=== PATIENT | male | born 1960 | race Caucasian/White ===

== ENCOUNTER 2016-11-27 01:38 | Emergency (ER) | payer BC ==
[2016-11-27 01:39] VITALS: BMI 46.7
--- NOTE | 2016-11-27 02:15 | ED PDOC ---
Arrival/HPI - General Chief Complaint: Lower Extremity Problem/Injury Time Seen by Provider: 11/27/16 02:06 Historian: Patient - History of Present Illness Narrative History of Present Illness (Text): 11/27/16 02:17 Samson Plata is a 56 year old male, with a history of asthma, diabetes, and hypothyroidism, presents to the emergency department complaining of left buttock pain radiating down left leg for past week. Patient also notes of tingling sensation to left leg, but denies any numbness or weakness. He was evaluated for these symptoms at the clinic and reports that symptoms have not improved despite taking medications. Denies any fever, chills, headache, dizziness, nausea, chest pain, shortness of breath or any other complaints at this time. Time/Duration: 1 week Symptom Onset: Gradual Severity Level: Mild Activities at Onset: Light Past Medical History - Provider Review Nursing Documentation Reviewed: Yes - Infectious Disease Hx of Infectious Diseases: None - Tetanus Immunization Tetanus Immunization: Unknown - Cardiac Hx Cardiac Disorders: No Hx Angina: No Hx Atrial Fibrillation: No Hx Cardiac Arrhythmia: No Hx Circulatory Problems: No Hx Congestive Heart Failure: No Hx NM: No Hx Heart Murmur: No Hx Heart Transplant: No Hx Hypertension: No Hx Hypotension: No Hx Internal Defibrillator: No Hx Mitral Valve Prolapse: No Hx Pacemaker: No Hx Peripheral Edema: No Hx Peripheral Vascular Disease: No - Pulmonary Hx Asthma: Yes Hx Bronchitis: No Hx Chronic Obstructive Pulmonary Disease (COPD): No Hx Emphysema: No Hx Lung Cancer: No Hx Pneumonia: No Hx Pulmonary Edema: No Hx Pulmonary Embolism: No Hx Respiratory Aspiration: No Hx Respiratory Tract Infection: No Hx Sleep Apnea: No Hx Tuberculosis: No - Neurological Hx Neurological Disorder: No Hx Alzheimer's Disease: No HX Cerebrovascular Accident: No Hx Dementia: No Hx Dizziness: No Hx Headaches: No Hx Meningitis: No Hx Migraine: No Hx Multiple Sclerosis: No Hx Paralysis: No Hx Parkinson's Disease: No Hx Seizures: No Hx Syncope: No Hx Transient Ischemic Attacks (TIA): No Hx Vertigo: No - HEENT Hx HEENT Disorder: No Hx Blind: No Hx Cataracts: No Hx Deafness: No Hx Difficulty Chewing: No Hx Epistaxis: No Hx Glaucoma: No Hx Macular Degeneration: No - Renal Hx Renal Disorder: No Hx Dialysis: No Hx Kidney Stones: No Hx Neurogenic Bladder: No Hx Pyelonephritis: No Hx Renal Cancer: No Hx Renal Failure: No - Endocrine/Metabolic Hx Adrenal Cancer: No Hx Diabetes Insipidus: No Hx Diabetes Mellitus Type 1: No Hx Diabetes Mellitus Type 2: Yes Hx Hyperthyroidism: No Hx Hypothyroidism: Yes Hx Systemic Lupus Erythematosus: No - Hematological/Oncological Hx Blood Disorders: No Hx AIDS: No Hx Anemia: No Hx Blood Transfusions: No Hx Blood Transfusion Reaction: No Hx Bruising: No Hx Cancer: No Hx Chemotherapy: No Hx Cirrhosis: No Hx Gum Bleeding: No Hx Hemophilia: No Hx Hepatitis A: No Hx Hepatitis B: No Hx Hepatitis C: No Hx Leukemia: No Hx Lymphoma: No Hx Metastasis: No Hx Shingles: No Hx Sickle Cell Trait: No Hx Sickle Cell Disease: No Hx Unexplained Bleeding: No Hx von Willebrand's Disease: No - Integumentary Hx Dermatological Disorder: No Hx Basal Cell Carcinoma: No Hx Jimenez: No Hx Cellulitis: No Hx Eczema: No Hx Melanoma: No Hx Psoriasis: No Hx Squamous Cell Carcinoma: No - Musculoskeletal/Rheumatological Hx Musculoskeletal Disorders: No Hx Arthritis: No Hx Back Pain: No Hx Degenerative Joint Disease: No Hx Falls: No Hx Fractures: No Hx Gout: No Hx Herniated Disk: No Hx Myasthenia Gravis: No Hx Osteoarthritis: No Hx Osteomyelitis: No Hx Osteoporosis: No Hx Rhabdomyolysis: No Hx Rheumatoid Arthritis: No Hx Spinal Stenosis: No Hx Unsteady Gait: No - Gastrointestinal Hx Gastrointestinal Disorders: No - Genitourinary/Gynecological Hx Genitourinary Disorders: No - Psychiatric Hx Psychophysiologic Disorder: No Hx Depression: No Hx Emotional Abuse: No Hx Physical Abuse: No Hx Substance Use: No - Past Surgical History Past Surgical History: No Previous - Surgical History Other/Comment: left knee surgery - Anesthesia Hx Anesthesia: Yes Hx Anesthesia Reactions: No Hx Malignant Hyperthermia: No - Suicidal Assessment Feels Threatened In Home Enviroment: No Family/Social History - Physician Review Nursing Documentation Reviewed: Yes Family/Social History: No Known Family HX Smoking Status: Never Smoked Hx Alcohol Use: No Hx Substance Use: No Hx Substance Use Treatment: No Allergies/Home Meds Allergies/Adverse Reactions: Allergies astemizole [From Hismanal] Allergy (Verified 11/27/16 01:58) RASH doxycycline Allergy (Verified 11/27/16 01:58) RASH nadolol Allergy (Verified 11/27/16 01:58) RASH tetracycline Allergy (Verified 11/27/16 01:58) RASH Home Medications: Home Meds Medication Instructions Recorded Confirmed Levothyroxine Sodium [Levoxyl] 200 mcg PO DAILY 11/27/16 11/27/16 metFORMIN [glucOPHAGE] 200 mg PO BID 11/27/16 11/27/16 Review of Systems - Physician Review All systems were reviewed & negative as marked: Yes - Review of Systems Constitutional: Normal. absent: Fatigue, Fevers Respiratory: Normal. absent: SOB, Cough, Sputum Cardiovascular: Normal. absent: Chest Pain, Palpitations Genitourinary Male: Normal. absent: Dysuria Musculoskeletal: Other (left leg pain ) Psychiatric: Normal Physical Exam Vital Signs Reviewed: Yes Vital Signs Temp Pulse Resp BP Pulse Ox 11/27/16 01:59 98.1 F 85 18 147/94 H 98 Temperature: Afebrile Blood Pressure: Normal Pulse: Regular Respiratory Rate: Normal Appearance: Positive for: Non-Toxic, Other (morbidly obese) Pain Distress: None Mental Status: Positive for: Alert and Oriented X 3 - Systems Exam Head: Present: Atraumatic, Normocephalic Pupils: Present: PERRL Conjunctiva: Present: Normal Mouth: Present: Moist Mucous Membranes Respiratory/Chest: Present: Clear to Auscultation, Good Air Exchange. No: Respiratory Distress, Accessory Muscle Use Cardiovascular: Present: Regular Rate and Rhythm, Normal S1, S2. No: Murmurs Abdomen: Present: Normal Bowel Sounds. No: Tenderness, Distention, Peritoneal Signs Back: Present: Normal Inspection. No: CVA Tenderness, Midline Tenderness Upper Extremity: Present: Normal Inspection. No: Cyanosis, Edema Lower Extremity: Present: Normal Inspection. No: Edema Neurological: Present: GCS=15, CN II-XII Intact, Speech Normal, Motor Func Grossly Intact, Normal Sensory Function Skin: Present: Warm, Dry, Normal Color. No: Rashes Psychiatric: Present: Alert, Oriented x 3, Normal Insight, Normal Concentration Medical Decision Making ED Course and Treatment: 11/27/16 02:21 Impression: A 56 year old male who presents to the emergency department complaining of left leg pain. Plan: -- CT lumbar spine -- Toradol -- Reassess and disposition Progress Notes: 11/27/16 03:49 CT Lumbar spine reviewed: IMPRESSION: No acute findings. Degenerative disease as above. If clinically indicated, consider nonemergent followup MRI for further evaluation. On re-evaluation, patient feels better and is in no acute distress. I have discussed the results and plan with the patient, who expresses understanding. Patient in agreement with plan to be discharged home. Patient is stable for discharge. Patient was instructed to follow up with physician or return if symptoms worsen or new concerning symptoms arise. Re-evaluation Time: 03:46 Reassessment Condition: Re-examined, Improved - RAD Interpretation Narrative RAD Interpretations (Text): EXAM: CT Lumbar Spine Without Intravenous Contrast No relevant prior studies available. FINDINGS: Vertebrae: There is straightening of lordosis. No acute fracture. Discs/spinal canal/neural foramina: There is mild multilevel degenerative change. Broad-based disc bulge and ligamentum flavum hypertrophy at the L4-5 level results in mild central canal stenosis. Soft tissues: No acute findings. IMPRESSION: No acute findings. Degenerative disease as above. If clinically indicated, consider nonemergent followup MRI for further evaluation. Radiology Orders: 11/27/16 02:17 LUMBAR SPINE W/O CONTRAST [CT] Stat Document Reviewer: Radiologist - Medication Orders Current Medication Orders: Discontinued Medications Ketorolac Tromethamine (Toradol) 30 mg IM ONCE ONE Stop: 11/27/16 02:16 Last Admin: 11/27/16 02:28 Dose: 30 mg - Scribe Statement The provider has reviewed the documentation as recorded by the Leandro oJnes Provider Attestation: Provider Scribe Attestation: All medical record entries made by the Sheldonibgrady were at my direction and personally dictated by me. I have reviewed the chart and agree that the record accurately reflects my personal performance of the history, physical exam, medical decision making, and the department course for this patient. I have also personally directed, reviewed, and agree with the discharge instructions and disposition. Disposition/Present on Arrival - Present on Arrival Any Indicators Present on Arrival: No History of DVT/PE: No History of Uncontrolled Diabetes: No Urinary Catheter: No History of Decub. Ulcer: No History Surgical Site Infection Following: None - Disposition Have Diagnosis and Disposition been Completed?: Yes Diagnosis: Sciatica Disposition: HOME/ ROUTINE Disposition Time: 03:47 Patient Problems: Current Active Problems Problem Status Onset Sciatica Acute Condition: GOOD Discharge Instructions (ExitCare): Sciatica (ED) Prescriptions: Meloxicam [Mobic] 15 mg PO DAILY #14 tab Forms: [employer] [facility] (Urdu)
[2016-11-27 02:22] VITALS: BP 147/94; PULSE 85; RESP 18; TEMP 98.1; O2SAT 98
--- NOTE | 2016-11-27 10:26 | CT ---
PROCEDURE: CT Lumbar Spine without contrast HISTORY: back pain COMPARISON: None. TECHNIQUE: Axial computed tomography images were obtained of the lumbar spine without the use of intravenous contrast. Coronal and sagittal reformatted images were created and reviewed. Radiation dose: Total exam DLP = 1421 mGy-cm. This CT exam was performed using one or more of the following dose reduction techniques: Automated exposure control, adjustment of the mA and/or kV according to patient size, and/or use of iterative reconstruction technique. FINDINGS: VERTEBRAE: Unremarkable. No fracture. Normal alignment. DISCS/SPINAL CANAL/NEURAL FORAMINA: L1-2: Unremarkable. L2-3: Unremarkable. L3-4: Mild disc bulge L4-5: Disc bulge an calcified central disc protrusion. There is a mild degree of spinal stenosis. L5-S1: Right-sided osteophyte with foraminal stenosis PARASPINAL SOFT TISSUES: Unremarkable. OTHER FINDINGS: The report concurs with the preliminary [facility] report IMPRESSION: Disc degeneration with calcified central protrusion at L4-5 producing mild central stenosis. Right-sided osteophyte producing foraminal stenosis at L5-S1
== END 2016-11-27 03:54 | disposition home or self-care (01) ==
LOC: ED 01:38
DX: M54.30 Sciatica, unspecified side (principal)
CPT/HCPCS: 72131; 96372; 99284; J1885

== ENCOUNTER 2017-04-20 00:38 | Emergency (ER) | payer BC ==
[2017-04-20 00:38] VITALS: BMI 46.7
[2017-04-20 00:53] VITALS: BP 163/94; PULSE 98; RESP 20; TEMP 98; O2SAT 99
--- NOTE | 2017-04-20 00:54 | ED PDOC ---
Arrival/HPI - General Chief Complaint: Back Pain Time Seen by Provider: 04/20/17 00:53 Historian: Patient - History of Present Illness Narrative History of Present Illness (Text): 04/20/17 00:54 Samson Plata is a 56 year old male, with a history of asthma, diabetes, and hypothyroidism, presents to the emergency department complaining of left lower back pain x 1 day. Patient denies trauma, flank pain, illegal drug use, urinary symptoms, weakness, paresthesias, GI/ incontinence, saddle anesthesias , urinary retention, or abnormal gait. Time/Duration: Other (1 day) Quality: Aching Context: Home Past Medical History - Provider Review Nursing Documentation Reviewed: Yes - Infectious Disease Hx of Infectious Diseases: None - Tetanus Immunization Tetanus Immunization: Unknown - Cardiac Hx Cardiac Disorders: Yes Hx Hypertension: Yes - Pulmonary Hx Respiratory Disorders: Yes Hx Asthma: Yes - Neurological Hx Neurological Disorder: No - HEENT Hx HEENT Disorder: No - Renal Hx Renal Disorder: No - Endocrine/Metabolic Hx Endocrine Disorders: Yes Hx Diabetes Mellitus Type 2: Yes Hx Hypothyroidism: Yes - Hematological/Oncological Hx Blood Disorders: No - Integumentary Hx Dermatological Disorder: No - Musculoskeletal/Rheumatological Hx Musculoskeletal Disorders: Yes Hx Back Pain: Yes - Gastrointestinal Hx Gastrointestinal Disorders: No - Genitourinary/Gynecological Hx Genitourinary Disorders: No - Psychiatric Hx Psychophysiologic Disorder: No Hx Substance Use: No - Past Surgical History Past Surgical History: No Previous - Surgical History Other/Comment: left knee surgery - Anesthesia Hx Anesthesia: Yes Hx Anesthesia Reactions: No Hx Malignant Hyperthermia: No - Suicidal Assessment Feels Threatened In Home Enviroment: No Family/Social History - Physician Review Nursing Documentation Reviewed: Yes Family/Social History: Other (noncontributory) Smoking Status: Never Smoked Hx Alcohol Use: No Hx Substance Use: No Hx Substance Use Treatment: No Allergies/Home Meds Allergies/Adverse Reactions: Allergies astemizole [From Hismanal] Allergy (Verified 04/20/17 00:49) RASH doxycycline Allergy (Verified 04/20/17 00:49) RASH nadolol Allergy (Verified 04/20/17 00:49) RASH tetracycline Allergy (Verified 04/20/17 00:49) RASH Home Medications: Home Meds Medication Instructions Recorded Confirmed Atorvastatin [Lipitor] 10 mg PO DAILY 04/20/17 04/20/17 Levothyroxine [Synthroid] 200 mcg PO DAILY 04/20/17 04/20/17 Losartan [Cozaar] 25 mg PO DAILY 04/20/17 04/20/17 Sitagliptin Phos/Metformin HCl 1 each PO BID 04/20/17 04/20/17 [Janumet 50-1,000 mg Tablet] Review of Systems - Review of Systems Constitutional: Normal. absent: Fatigue, Weight Change, Fevers Eyes: Normal ENT: Normal Respiratory: Normal. absent: SOB, Cough Cardiovascular: Normal Gastrointestinal: Normal. absent: Abdominal Pain, Nausea, Vomiting Genitourinary Male: Normal. absent: Dysuria, Frequency Musculoskeletal: Back Pain. absent: Neck Pain Skin: Normal Neurological: Normal. absent: Headache, Dizziness, Focal Weakness, Gait Changes , Speech Changes, Facial Droop, Disequilibrium, Seizure Endocrine: Normal Hemo/Lymphatic: Normal Psychiatric: Normal Physical Exam Vital Signs Temp Pulse Resp BP Pulse Ox 04/20/17 00:50 98 F 98 H 20 163/94 H 99 Temperature: Afebrile Blood Pressure: Normal Pulse: Regular Respiratory Rate: Normal Appearance: Positive for: Well-Appearing, Non-Toxic, Comfortable Pain Distress: None Mental Status: Positive for: Alert and Oriented X 3 - Systems Exam Head: Present: Atraumatic, Normocephalic Mouth: Present: Moist Mucous Membranes Abdomen: No: Tenderness Back: Present: Normal Inspection, Paraspinal Tenderness (mild left paravertebral tenderness. no vertebal point tenderness. No vertebral step off ). No: CVA Tenderness, Midline Tenderness, Pain with Leg Raise Upper Extremity: Present: Normal Inspection, Normal ROM Lower Extremity: Present: Normal Inspection, Normal ROM Neurological: Present: GCS=15, CN II-XII Intact, Speech Normal, Motor Func Grossly Intact, Normal Sensory Function, Normal Cerebellar Funct, Gait Normal, Memory Normal, Other (No neuro focal deficits) Skin: Present: Warm, Dry, Normal Color. No: Rashes Psychiatric: Present: Alert, Oriented x 3, Normal Insight, Normal Concentration Medical Decision Making ED Course and Treatment: 04/20/17 01:50 Re-evaluation. Patient feels better. Discussed results and plan with patient who expresses understanding. All questions answered and there is agreement with the plan to discharge home with instructions. Patient stable for discharge. Return if symptoms persist or worsen. Patient was recommend d to f/u pmd in 2-3 days. He understands not to drive or operate machinery while taking Valium. Patient stated he will be taking [employer] upon discharge of this ED visit tonight. Patient will return to ED if symptom worsen. Re-evaluation Time: 01:50 Reassessment Condition: Re-examined, Improved - Medication Orders Current Medication Orders: Discontinued Medications Diazepam (Valium) 5 mg PO STAT STA PRN Reason: Protocol Stop: 04/20/17 01:20 Last Admin: 04/20/17 01:36 Dose: 5 mg Ketorolac Tromethamine (Toradol) 30 mg IM STAT STA Stop: 04/20/17 01:10 Last Admin: 04/20/17 01:36 Dose: 30 mg MAR Pain Assessment Document 04/20/17 01:36 CNR (Rec: 04/20/17 01:36 CNR [id number]) Pain Reassessment Is this a pain reassessment? Yes IM Administration Charges Document 04/20/17 01:36 CNR (Rec: 04/20/17 01:36 CNR [id number]) Injection Site MAR Injection Site Right Deltoid Charges for Administration # of IM Administrations 1 Disposition/Present on Arrival - Present on Arrival Any Indicators Present on Arrival: No History of DVT/PE: No History of Uncontrolled Diabetes: No Urinary Catheter: No History of Decub. Ulcer: No History Surgical Site Infection Following: None - Disposition Have Diagnosis and Disposition been Completed?: Yes Diagnosis: Back pain Disposition: HOME/ ROUTINE Disposition Time: 01:51 Patient Plan: Discharge Condition: IMPROVED Discharge Instructions (ExitCare): Back Pain (ED) Additional Instructions: Call private doctor for follow up visit in 1-2 days. take medication as instructed. Return to emergency if pain worsen, rash , fever, shortness of breath or abnormal walk. Do not drive or operate machinery if you take Valium for at least 10 hours Prescriptions: diaZEpam [Valium] 5 mg PO DAILY #5 tab Ibuprofen [Motrin] 600 mg PO Q8 PRN #15 tab PRN Reason: Pain, Severe (8-10) Forms: [employer] (Serbian)
== END 2017-04-20 02:04 | disposition home or self-care (01) ==
LOC: ED 00:38
DX: M54.5 Low back pain (principal); E11.9 Type 2 diabetes mellitus without complications; I10 Essential (primary) hypertension; E03.9 Hypothyroidism, unspecified
CPT/HCPCS: 96372; 99282; J1885

== ENCOUNTER 2017-04-21 14:22 | Emergency (ER) | payer BC ==
[2017-04-21 14:23] VITALS: BMI 46.7
[2017-04-21 14:30] VITALS: TEMP 97.9
--- NOTE | 2017-04-21 14:31 | ED PDOC ---
Arrival/HPI - General Chief Complaint: Back Pain Time Seen by Provider: 04/21/17 14:30 Historian: Patient - History of Present Illness Narrative History of Present Illness (Text): 04/21/17 14:31 56 y/o male, pmh including htn/hyperlipidemia/dm, allergic to tetracycline and beta blockers, c/o lt. gluteal pain radiating to the lt. lower extremity x 3 days with no fall or trauma. Pt. stated that he has central lumbar disc protrusion on the L4L5 and rt. sided foraminal stenosis at L5S1, started to have pain 3 days ago, no fever or chills, no urinary or bowel incontinence/ retention, no numbness or tingling, no palpitation, no dizziness, no rash, no other medical or psychological complaints. Past Medical History - Provider Review Nursing Documentation Reviewed: Yes - Infectious Disease Hx of Infectious Diseases: None - Tetanus Immunization Tetanus Immunization: Unknown - Cardiac Hx Cardiac Disorders: Yes Hx Hypertension: Yes - Pulmonary Hx Respiratory Disorders: Yes Hx Asthma: Yes - Neurological Hx Neurological Disorder: No - HEENT Hx HEENT Disorder: No - Renal Hx Renal Disorder: No - Endocrine/Metabolic Hx Endocrine Disorders: Yes Hx Diabetes Mellitus Type 2: Yes Hx Hypothyroidism: Yes - Hematological/Oncological Hx Blood Disorders: No - Integumentary Hx Dermatological Disorder: No - Musculoskeletal/Rheumatological Hx Musculoskeletal Disorders: Yes Hx Back Pain: Yes - Gastrointestinal Hx Gastrointestinal Disorders: No - Genitourinary/Gynecological Hx Genitourinary Disorders: No - Psychiatric Hx Psychophysiologic Disorder: No Hx Substance Use: No - Past Surgical History Past Surgical History: No Previous - Surgical History Other/Comment: left knee surgery - Anesthesia Hx Anesthesia: Yes Hx Anesthesia Reactions: No Hx Malignant Hyperthermia: No - Suicidal Assessment Feels Threatened In Home Enviroment: No Family/Social History - Physician Review Nursing Documentation Reviewed: Yes Family/Social History: Unknown Family HX Smoking Status: Never Smoked Hx Alcohol Use: No Hx Substance Use: No Hx Substance Use Treatment: No Allergies/Home Meds Allergies/Adverse Reactions: Allergies astemizole [From Hismanal] Allergy (Verified 04/20/17 00:49) RASH doxycycline Allergy (Verified 04/20/17 00:49) RASH nadolol Allergy (Verified 04/20/17 00:49) RASH tetracycline Allergy (Verified 04/20/17 00:49) RASH Home Medications: Home Meds Medication Instructions Recorded Confirmed Atorvastatin [Lipitor] 10 mg PO DAILY 04/20/17 04/21/17 Levothyroxine [Synthroid] 200 mcg PO DAILY 04/20/17 04/21/17 Losartan [Cozaar] 25 mg PO DAILY 04/20/17 04/21/17 Sitagliptin Phos/Metformin HCl 1 each PO BID 04/20/17 04/21/17 [Janumet 50-1,000 mg Tablet] Review of Systems - Review of Systems Constitutional: absent: Fatigue, Fevers Eyes: absent: Vision Changes ENT: absent: Hearing Changes Respiratory: absent: SOB, Cough Cardiovascular: absent: Chest Pain Gastrointestinal: absent: Abdominal Pain, Nausea, Vomiting Musculoskeletal: Myalgias. absent: Arthralgias, Back Pain, Neck Pain, Joint Swelling Skin: absent: Rash, Pruritis Neurological: absent: Headache, Dizziness Psychiatric: absent: Anxiety, Depression, Suicidal Ideation Physical Exam Vital Signs Reviewed: Yes Vital Signs Temp Pulse Resp BP Pulse Ox 04/21/17 16:15 88 18 152/97 H 98 04/21/17 14:31 183/97 H 04/21/17 14:29 97.9 F 103 H 20 178/119 H 95 Temperature: Afebrile Blood Pressure: Normal Pulse: Regular Respiratory Rate: Normal Appearance: Positive for: Well-Appearing, Non-Toxic Pain Distress: Severe Mental Status: Positive for: Alert and Oriented X 3 - Systems Exam Head: Present: Atraumatic, Normocephalic Pupils: Present: PERRL Extroacular Muscles: Present: EOMI Conjunctiva: Present: Normal Mouth: Present: Moist Mucous Membranes Neck: Present: Normal Range of Motion Respiratory/Chest: Present: Clear to Auscultation, Good Air Exchange. No: Respiratory Distress, Accessory Muscle Use Cardiovascular: Present: Regular Rate and Rhythm, Normal S1, S2. No: Murmurs Abdomen: Present: Normal Bowel Sounds. No: Tenderness, Distention, Peritoneal Signs Back: Present: Normal Inspection, Other (Thoracic to LS spine: no midline tenderness or step off, no paraspinal tenderness, FROM without limitation, sensation intact, motor 5/5, unable to perform SLR test due to the pain. ). No : CVA Tenderness, Midline Tenderness, Pain with Leg Raise, Decubitus Ulcer Upper Extremity: Present: Normal Inspection. No: Cyanosis, Edema Lower Extremity: Present: Normal Inspection, NORMAL PULSES, Normal ROM, Neurovascularly Intact, Capillary Refill < 2 s. No: Edema, Tenderness, Swelling , Deformity Neurological: Present: GCS=15, CN II-XII Intact, Speech Normal, Motor Func Grossly Intact, Gait Normal, Memory Normal Skin: Present: Warm, Dry, Normal Color. No: Rashes Psychiatric: Present: Alert, Oriented x 3, Normal Insight, Normal Concentration Medical Decision Making ED Course and Treatment: 04/21/17 14:54 -LLE venuous doppler -IVF/morphine/toradol/decadron 04/21/17 15:37 -LLE Venuous Doppler: as per preliminary report, no acute DVT -Pain improved with BP improved, pain has not completely resolved, dilaudid 1mg IV ordered. -I checked the [facility] report, no visible narcotic prescribe for the past 12 months base on today's report. 04/21/17 17:27 -Pt. feels much better after the IV medications, walking with normal gait and posture, -Discharge home with naproxen, flexeril, lidoderm patch, percocet for severe pain, cane, bed rest, follow up with your own pmd and neurosurgery/pain management within 2 days, return to the ER for any new or worsening signs or symptoms. - RAD Interpretation Radiology Orders: 04/21/17 14:45 DUPLEX LOWER EXTRM VEIN LEFT [US] Stat -LLE Venuous Doppler: as per preliminary report, no acute DVT Land Manager: Radiologist - Medication Orders Current Medication Orders: Discontinued Medications Dexamethasone (Decadron Inj) 8 mg IM STAT STA Stop: 04/21/17 14:47 Last Admin: 04/21/17 15:04 Dose: 8 mg IM Administration Charges Document 04/21/17 15:04 OCS (Rec: 04/21/17 15:04 OCS [id number]) Injection Site MAR Injection Site Left Deltoid Charges for Administration # of IM Administrations 1 Hydromorphone HCl (Dilaudid) 1 mg IVP STAT STA Stop: 04/21/17 16:22 Last Admin: 04/21/17 16:41 Dose: 1 mg MAR Pain Assessment Document 04/21/17 16:41 OCS (Rec: 04/21/17 16:42 OCS [id number]) Pain Reassessment Is this a pain reassessment? Yes Sleep Is patient sleeping during reassessment? No Presence of Pain Presence of Pain Yes Pain Scale Used Pain Scale Used Numeric Location Left, Right or Bilateral Bilateral Upper or Lower Lower Pain Location Body Site Back Description Description Constant Intensity of Pain at present 10 Pain Behavior Moaning Irritability Facial Grimacing Aggravating Factors ADL's IVP Administration Document 04/21/17 16:41 OCS (Rec: 04/21/17 16:42 OCS [id number]) Charges for Administration # of IVP Administrations 1 Ketorolac Tromethamine (Toradol) 30 mg IVP STAT STA Stop: 04/21/17 14:46 Last Admin: 04/21/17 15:04 Dose: 30 mg MAR Pain Assessment Document 04/21/17 15:04 OCS (Rec: 04/21/17 15:04 [id number] Pain Reassessment Is this a pain reassessment? Yes Sleep Is patient sleeping during reassessment? No Presence of Pain Presence of Pain Yes Pain Scale Used Pain Scale Used Numeric Location Left, Right or Bilateral Bilateral Pain Location Body Site Back Description Description Constant Intensity of Pain at present 10 Pain Behavior Moaning Irritability Aggravating Factors ADL's IVP Administration Document 04/21/17 15:04 OCS (Rec: 04/21/17 15:04 [id number]) Charges for Administration # of IVP Administrations 1 Lidocaine (Lidoderm) 1 ea TD STAT STA Stop: 04/21/17 14:47 Last Admin: 04/21/17 15:04 Dose: 1 ea MAR Transdermal Patch Site Document 04/21/17 15:04 OCS (Rec: 04/21/17 15:04 [id number]) Transdermal Patch Site Transdermal Patch Site Left Buttock Morphine Sulfate (Morphine) 4 mg IVP STAT STA Stop: 04/21/17 14:46 Last Admin: 04/21/17 15:05 Dose: 4 mg MAR Pain Assessment Document 04/21/17 15:05 OCS (Rec: 04/21/17 15:06 [id number]) Pain Reassessment Is this a pain reassessment? Yes Sleep Is patient sleeping during reassessment? No Presence of Pain Presence of Pain Yes Pain Scale Used Pain Scale Used Numeric Location Left, Right or Bilateral Bilateral Upper or Lower Lower Pain Location Body Site Back Description Description Constant Intensity of Pain at present 10 Pain Behavior Moaning Irritability Aggravating Factors ADL's IVP Administration Document 04/21/17 15:05 OCS (Rec: 04/21/17 15:06 OCS [id number]) Charges for Administration # of IVP Administrations 1 - PA / VALET SERVICE ATTENDANT / Resident Statement MD/DO has reviewed & agrees with the documentation as recorded. Disposition/Present on Arrival - Present on Arrival Any Indicators Present on Arrival: No History of DVT/PE: No History of Uncontrolled Diabetes: No Urinary Catheter: No History of Decub. Ulcer: No History Surgical Site Infection Following: None - Disposition Have Diagnosis and Disposition been Completed?: Yes Diagnosis: Lumbar radiculopathy, Lumbar disc herniation Disposition: HOME/ ROUTINE Disposition Time: 16:30 Patient Plan: Discharge Patient Problems: Current Active Problems Problem Status Onset Lumbar radiculopathy Acute Lumbar disc herniation Acute Condition: IMPROVED Additional Instructions: -Discharge home with naproxen, flexeril, lidoderm patch, percocet for severe pain, cane, bed rest, follow up with your own pmd and neurosurgery/pain management within 2 days, return to the ER for any new or worsening signs or symptoms. Prescriptions: Cyclobenzaprine [Cyclobenzaprine HCl] 10 mg PO TID PRN #21 tab PRN Reason: Other Lidocaine 5% [Lidoderm] 1 patch TOP DAILY PRN #14 patch PRN Reason: Other Naproxen 500 mg PO BID PRN #28 tab PRN Reason: Other oxyCODONE/Acetaminophen [Percocet 5/325 mg Tab] 1 tab PO QID PRN #12 tab PRN Reason: Other Referrals: Sofia Mcintosh, [Primary Care Provider] - Follow up with primary Benny Lee MD [Staff Provider] - Follow up with primary [facility] [place]] - Follow up with primary Yuliya Main MD [Staff Provider] - Follow up with primary Forms: WORK NOTE
[2017-04-21] MEDS ORDERED: Morphine 4 mg/ml ISec IVP STA (14:45)
[2017-04-21] MEDS ORDERED: Lidocaine 5% Patch TD STA (14:46)
[2017-04-21 16:15] VITALS: BP 152/97; PULSE 88; RESP 18; O2SAT 98
[2017-04-21] MEDS ORDERED: HYDROmorphone 1 mg/ml ISec IVP STA (16:21)
--- NOTE | 2017-04-22 13:10 | US ---
PROCEDURE: Left lower extremity venous US HISTORY: Leg pain and swelling. Evaluate for DVT. PHYSICIAN(S): Wilder Masters MD. TECHNIQUE: Duplex sonography and color-flow Doppler with graded compression were used to evaluate the deep venous system of the left lower extremity. FINDINGS: The visualized deep venous system of the left lower extremity is sonographically normal and compressible. Normal wave forms and augmentation are seen. There is no sonographic evidence for deep venous thrombosis in the visualized segments of the left lower extremity. IMPRESSION: 1. No sonographic evidence for deep venous thrombosis in the visualized segments of the left lower extremity.
== END 2017-04-21 17:23 | disposition home or self-care (01) ==
LOC: ED 14:22
DX: M51.16 Intervertebral disc disorders with radiculopathy, lumbar region (principal); M51.26 Other intervertebral disc displacement, lumbar region; I10 Essential (primary) hypertension; E78.5 Hyperlipidemia, unspecified; E11.9 Type 2 diabetes mellitus without complications; E03.9 Hypothyroidism, unspecified
CPT/HCPCS: 93971; 96372; 96374; 96375; 99283; J1100; J1170; J1885; J2270

== ENCOUNTER 2017-06-29 23:28 | Emergency (ER) | payer BC ==
[2017-06-29 23:32] VITALS: BMI 50.2
[2017-06-29 23:37] VITALS: BP 173/90; PULSE 95; RESP 18; TEMP 98.9; O2SAT 98
--- NOTE | 2017-06-30 00:43 | ED PDOC ---
Arrival/HPI - General Chief Complaint: Back Pain Historian: Patient - History of Present Illness Narrative History of Present Illness (Text): 06/30/17 00:39 56M morbidly obese pt pmh, significant for hypthryoidism, NIDDM, chronic back pain presents to [facility] [place] Emergency department w/ sharp left sided back pain that radiates down the back of the leg to the foot that started yesterday. Patient was sitting and driving when the pain started. Alleviating factors include rest and keeping leg straight. Worse w/ sitting. Denies urinary/bowel incontinence, numbness/paralysis in lower extremities. 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 denies tobacco, etoh, recreational drug use Time/Duration: < week Symptom Course: Improving Quality: Aching, Pressure, Stabbing Severity Level: 7 Activities at Onset: Rest Context: Sitting Past Medical History - Provider Review Nursing Documentation Reviewed: Yes - Travel History Have you recently traveled outside [place] w/in the past 3 mons?: No - Infectious Disease Hx of Infectious Diseases: None - Tetanus Immunization Tetanus Immunization: Unknown - Cardiac Hx Cardiac Disorders: Yes - Pulmonary Hx Respiratory Disorders: Yes Hx Asthma: Yes - Neurological Hx Neurological Disorder: No - HEENT Hx HEENT Disorder: No - Renal Hx Renal Disorder: No - Endocrine/Metabolic Hx Endocrine Disorders: Yes Hx Diabetes Mellitus Type 2: Yes Hx Hypothyroidism: Yes - Hematological/Oncological Hx Blood Disorders: No - Integumentary Hx Dermatological Disorder: No - Musculoskeletal/Rheumatological Hx Musculoskeletal Disorders: Yes Hx Back Pain: Yes - Gastrointestinal Hx Gastrointestinal Disorders: No - Genitourinary/Gynecological Hx Genitourinary Disorders: No - Psychiatric Hx Psychophysiologic Disorder: No Hx Substance Use: No - Past Surgical History Past Surgical History: No Previous - Surgical History Other/Comment: left knee surgery - Anesthesia Hx Anesthesia: Yes Hx Anesthesia Reactions: No Hx Malignant Hyperthermia: No - Suicidal Assessment Feels Threatened In Home Enviroment: No Family/Social History - Physician Review Nursing Documentation Reviewed: Yes Family/Social History: Other (PVD) Smoking Status: Never Smoked Hx Alcohol Use: No Hx Substance Use: No Hx Substance Use Treatment: No Allergies/Home Meds Allergies/Adverse Reactions: Allergies astemizole [From Hismanal] Allergy (Verified 06/30/17 01:05) RASH doxycycline Allergy (Verified 06/30/17 01:05) RASH nadolol Allergy (Verified 06/30/17 01:05) RASH tetracycline Allergy (Unverified 06/30/17 01:05) RASH Home Medications: Home Meds Medication Instructions Recorded Confirmed Levothyroxine [Synthroid] 200 mcg PO DAILY 04/20/17 06/29/17 Sitagliptin Phos/Metformin HCl 1 tab PO DAILY 06/29/17 [Janumet 50-500 mg Tablet] Review of Systems - Physician Review All systems were reviewed & negative as marked: Yes - Review of Systems Constitutional: Normal Eyes: Normal ENT: Normal Respiratory: Normal Cardiovascular: Normal Gastrointestinal: Normal Genitourinary Male: Normal Musculoskeletal: Normal Skin: Other (RLE hyperpigmentation) Endocrine: Polyuria Psychiatric: Normal Physical Exam Vital Signs Reviewed: Yes Vital Signs Temp Pulse Resp BP Pulse Ox 06/29/17 23:32 98.9 F 95 H 18 173/90 H 98 Temperature: Afebrile Blood Pressure: Hypertensive Pulse: Regular Respiratory Rate: Normal Appearance: Positive for: Well-Appearing, Non-Toxic, Comfortable Pain Distress: Moderate Mental Status: Positive for: Alert and Oriented X 3 - Systems Exam Head: Present: Atraumatic Pupils: Present: PERRL Extroacular Muscles: Present: EOMI Conjunctiva: Present: Normal Mouth: Present: Moist Mucous Membranes Neck: Present: Normal Range of Motion Respiratory/Chest: Present: Clear to Auscultation, Good Air Exchange. No: Respiratory Distress, Accessory Muscle Use, Wheezes, Rhonchi Cardiovascular: Present: Regular Rate and Rhythm, Normal S1, S2. No: Murmurs, Tachycardic, Bradycardic Abdomen: Present: Other (soft). No: Tenderness, Distention, Peritoneal Signs Upper Extremity: Present: Normal Inspection Lower Extremity: Present: Other (b/l warm, Left side +2 pulses). No: Socorro's Sign, Tenderness Neurological: Present: GCS=15, CN II-XII Intact, Speech Normal Skin: Present: Warm Psychiatric: Present: Alert, Oriented x 3 Medical Decision Making ED Course and Treatment: 06/30/17 00:46 Pain control w/ IM toradol muscle relaxer flexiril LE taken through full test of passive ROM 06/30/17 00:55 you were treated in the ED today for history of lower back pain with flare-up today and left sided sciatica type pain but otherwise without any nausea/ vomiting/headache/dizziness/difficulty breathing/chest pain/abdomen pain/ numbness/tingling/loss of limb or bowel or bladder function/pain with urination. You were otherwise breathing easily, pink moist lips, talking easily , good strength/sensation, alert/oriented, walking easily, clear lungs, no abdomen tenderness, no fever temp 98.5, stable heart rate 95, stable breathing rate 18, excellent oxygen level 98% room air, elevated blood pressure 173/90 which we recommend repeat in 2-3 days primary care office to determine further treatment, flexeril, motrin, observation done in the ED with improvement, had a long discussion regarding your CT lumbar with disc disease in 2017, you didn' t want further imaging today and cautioned for missed diagnosis but you preferred treatment and thus counselled to rest/heating pads and thus discharged home with family. 1. Recommend naproxen as directed for mild pain. 2. Recommend flexeril as directed for breakthrough pain and don't use when working/driving/drinking alcohol. 3. Recommend follow-up primary care 2-3 days to review symptoms, referral to spine clinic to eval and consider MRI of spine. 3. If any worsening pain, fever, chills, nausea, vomiting, difficulty breathing , numbness, loss of limb function, pain with urination or any medical condition then return to the ED. 06/30/17 00:56 06/30/17 00:57 Reassessment Condition: Improved - Medication Orders Current Medication Orders: Discontinued Medications Cyclobenzaprine HCl (Flexeril) 10 mg PO STAT STA Stop: 06/30/17 00:22 Last Admin: 06/30/17 00:45 Dose: 10 mg Ketorolac Tromethamine (Toradol) 15 mg IM STAT STA Stop: 06/30/17 00:22 Last Admin: 06/30/17 00:49 Dose: 15 mg MAR Pain Assessment Document 06/30/17 00:49 SS (Rec: 06/30/17 00:49 [id number] Pain Reassessment Is this a pain reassessment? No Presence of Pain Presence of Pain Yes IM Administration Charges Document 06/30/17 00:49 SS (Rec: 06/30/17 00:49 [id number][facility] Charges for Administration # of IM Administrations 1 - PA / DOG POUND ATTENDANT / Resident Statement MD/DO has reviewed & agrees with the documentation as recorded. Disposition/Present on Arrival - Present on Arrival Any Indicators Present on Arrival: No History of DVT/PE: No History of Uncontrolled Diabetes: No Urinary Catheter: No History of Decub. Ulcer: No History Surgical Site Infection Following: None - Disposition Have Diagnosis and Disposition been Completed?: Yes Diagnosis: Low back pain, Compression of left sciatic nerve, Acute back pain with sciatica Disposition: HOME/ ROUTINE Disposition Time: 00:47 Patient Plan: Discharge Patient Problems: Current Active Problems Problem Status Onset Acute back pain with sciatica Acute Compression of left sciatic nerve Acute Low back pain Acute Condition: GOOD Discharge Instructions (ExitCare): Low Back Pain (DC) Additional Instructions: Previous CT scan reviewed from 2017: Disc degeneration w/ calcified central protrusion at L4-5 producing mild central stenosis; reight sided osteophyte producing foraminal stenosis at L5-S1 Recommend putting wallet in front pockets. Follow up w/ PMD for f/u MRI. you were treated in the ED today for history of lower back pain with flare-up today and left sided sciatica type pain but otherwise without any nausea/ vomiting/headache/dizziness/difficulty breathing/chest pain/abdomen pain/ numbness/tingling/loss of limb or bowel or bladder function/pain with urination. You were otherwise breathing easily, pink moist lips, talking easily , good strength/sensation, alert/oriented, walking easily, clear lungs, no abdomen tenderness, no fever temp 98.5, stable heart rate 95, stable breathing rate 18, excellent oxygen level 98% room air, elevated blood pressure 173/90 which we recommend repeat in 2-3 days primary care office to determine further treatment, flexeril, motrin, observation done in the ED with improvement, had a long discussion regarding your CT lumbar with disc disease in 2017, you didn' t want further imaging today and cautioned for missed diagnosis but you preferred treatment and thus counselled to rest/heating pads and thus discharged home with family. 1. Recommend naproxen as directed for mild pain. 2. Recommend flexeril as directed for breakthrough pain and don't use when working/driving/drinking alcohol. 3. Recommend follow-up primary care 2-3 days to review symptoms, referral to spine clinic to eval and consider MRI of spine. 3. If any worsening pain, fever, chills, nausea, vomiting, difficulty breathing , numbness, loss of limb function, pain with urination or any medical condition then return to the ED. Forms: [employer] ([employer])
== END 2017-06-30 01:24 | disposition home or self-care (01) ==
LOC: ED 23:28
DX: M54.40 Lumbago with sciatica, unspecified side (principal); G57.02 Lesion of sciatic nerve, left lower limb; E11.9 Type 2 diabetes mellitus without complications; E03.9 Hypothyroidism, unspecified; E66.01 Morbid (severe) obesity due to excess calories
CPT/HCPCS: 96372; 99282; J1885

== ENCOUNTER 2017-07-11 20:12 | Emergency (ER) | payer BC ==
[2017-07-11 20:19] VITALS: BMI 48.8
--- NOTE | 2017-07-11 21:13 | ED PDOC ---
Arrival/HPI - General Chief Complaint: Back Pain Time Seen by Provider: 07/11/17 20:58 Historian: Patient - History of Present Illness Narrative History of Present Illness (Text): 07/11/17 21:06 56M morbidly obese pt pmh, significant for hypthryoidism, NIDDM, chronic back pain presents to [facility] Emergency department w/ sharp left sided back pain that radiates down the left buttocks since yesterday. Denies trauma, skin rash, weakness, paresthesias, GI/ incontinence, saddle anesthesia, urinary retention , dizziness, or abnormal gait. Time/Duration: Other (see hpi) Quality: Aching Context: Home Past Medical History - Provider Review Nursing Documentation Reviewed: Yes - Infectious Disease Hx of Infectious Diseases: None - Tetanus Immunization Tetanus Immunization: Unknown - Cardiac Hx Cardiac Disorders: No - Pulmonary Hx Respiratory Disorders: Yes Hx Asthma: Yes - Neurological Hx Neurological Disorder: No - HEENT Hx HEENT Disorder: No - Renal Hx Renal Disorder: No - Endocrine/Metabolic Hx Endocrine Disorders: Yes Hx Diabetes Mellitus Type 2: Yes Hx Hypothyroidism: Yes - Hematological/Oncological Hx Blood Disorders: No - Integumentary Hx Dermatological Disorder: No - Musculoskeletal/Rheumatological Hx Musculoskeletal Disorders: Yes Hx Back Pain: Yes - Gastrointestinal Hx Gastrointestinal Disorders: No - Genitourinary/Gynecological Hx Genitourinary Disorders: No - Psychiatric Hx Psychophysiologic Disorder: No Hx Substance Use: No - Past Surgical History Past Surgical History: No Previous - Surgical History Other/Comment: left knee surgery - Anesthesia Hx Anesthesia: Yes Hx Anesthesia Reactions: No Hx Malignant Hyperthermia: No - Suicidal Assessment Feels Threatened In Home Enviroment: No Family/Social History - Physician Review Nursing Documentation Reviewed: Yes Family/Social History: Other (noncontributory) Smoking Status: Never Smoked Hx Alcohol Use: No Hx Substance Use: No Hx Substance Use Treatment: No Allergies/Home Meds Allergies/Adverse Reactions: Allergies astemizole [From Hismanal] Allergy (Verified 07/11/17 20:16) RASH doxycycline Allergy (Verified 07/11/17 20:16) RASH nadolol Allergy (Verified 07/11/17 20:16) RASH tetracycline Allergy (Verified 07/11/17 20:16) RASH Home Medications: Home Meds Medication Instructions Recorded Confirmed Levothyroxine [Synthroid] 200 mcg PO DAILY 04/20/17 07/11/17 Sitagliptin Phos/Metformin HCl 1 tab PO DAILY 06/29/17 07/11/17 [Janumet 50-500 mg Tablet] Review of Systems - Review of Systems Constitutional: Normal. absent: Fatigue, Weight Change, Fevers Eyes: Normal ENT: Normal Respiratory: Normal Cardiovascular: Normal Gastrointestinal: Normal Genitourinary Male: Normal Musculoskeletal: Back Pain Skin: Normal Neurological: Normal Endocrine: Normal Hemo/Lymphatic: Normal Psychiatric: Normal Physical Exam Vital Signs Temp Pulse Resp BP Pulse Ox 07/11/17 20:18 97.7 F 93 H 19 168/104 H 96 Temperature: Afebrile Blood Pressure: Normal Pulse: Regular Respiratory Rate: Normal Appearance: Positive for: Well-Appearing, Non-Toxic, Comfortable Pain Distress: None Mental Status: Positive for: Alert and Oriented X 3 - Systems Exam Head: Present: Atraumatic, Normocephalic Pupils: Present: PERRL Extroacular Muscles: Present: EOMI Conjunctiva: Present: Normal Mouth: Present: Moist Mucous Membranes Neck: Present: Normal Range of Motion Respiratory/Chest: Present: Clear to Auscultation, Good Air Exchange. No: Respiratory Distress, Accessory Muscle Use Cardiovascular: Present: Regular Rate and Rhythm, Normal S1, S2. No: Murmurs Abdomen: Present: Normal Bowel Sounds. No: Tenderness, Distention, Peritoneal Signs Back: Present: Normal Inspection, Paraspinal Tenderness (mild left paravertebral tenderness. ), Other (no vertebral point tenderness. No vertebral step off. No skin rash over the area of tenderness.). No: CVA Tenderness, Midline Tenderness, Pain with Leg Raise Upper Extremity: Present: Normal Inspection. No: Cyanosis, Edema Lower Extremity: Present: Normal Inspection. No: Edema Neurological: Present: GCS=15, CN II-XII Intact, Speech Normal, Motor Func Grossly Intact, Normal Sensory Function, Normal Cerebellar Funct, Gait Normal, Memory Normal Skin: Present: Warm, Dry, Normal Color. No: Rashes Psychiatric: Present: Alert, Oriented x 3, Normal Insight, Normal Concentration Medical Decision Making ED Course and Treatment: 07/11/17 21:27 I spoke with patient regarding Percocet which it could be a habit forming medication. I told patient Percocet is a narcotic medication, and he will have difficulty getting prescription if he continues with chronic lower back pain. I recommended him to see specialist. Patient understood plan. 07/11/17 21:41 Re-evaluation. Patient feels better. Discussed results and plan with patient who expresses understanding. All questions answered and there is agreement with the plan to discharge home with instructions. Patient stable for discharge. Return if symptoms persist or worsen. Re-evaluation Time: 21:29 Reassessment Condition: Re-examined, Improved - Medication Orders Current Medication Orders: Discontinued Medications Ketorolac Tromethamine (Toradol) 30 mg IM STAT STA Stop: 07/11/17 21:15 Oxycodone/Acetaminophen (Percocet 5/325 Mg Tab) 2 tab PO STAT STA Stop: 07/11/17 21:15 Disposition/Present on Arrival - Present on Arrival Any Indicators Present on Arrival: No History of DVT/PE: No History of Uncontrolled Diabetes: No Urinary Catheter: No History of Decub. Ulcer: No History Surgical Site Infection Following: None - Disposition Have Diagnosis and Disposition been Completed?: Yes Diagnosis: Chronic back pain, Lumbar radiculopathy Disposition: HOME/ ROUTINE Disposition Time: 21:29 Patient Plan: Discharge Patient Problems: Current Active Problems Problem Status Onset Chronic back pain Acute Lumbar radiculopathy Acute Condition: GOOD Discharge Instructions (ExitCare): Radiculopathy Additional Instructions: Call private doctor for follow up visit in 1- 2 days. Take medication as instructed with food. Call orthopedist if pain persist. Do not drive or operate machinery if you take Percocet or Robaxin for at least 12 hours Prescriptions: Ibuprofen [Motrin] 600 mg PO Q8H PRN #20 tab PRN Reason: Pain, Severe (8-10) Methocarbamol [Robaxin-750] 750 mg PO TID #21 tab oxyCODONE/Acetaminophen [Percocet 5/325 mg Tab] 1 ea PO Q4H PRN #5 tab PRN Reason: Pain, Severe (8-10) Referrals: PCP,NO [Primary Care Provider] - Follow up with primary [facility] [Outside] - Follow up with primary [facility] [Outside] - Follow up with primary [facility] [Outside] - Follow up with primary Forms: [employer] (Kazakh)
[2017-07-11] MEDS ORDERED: Oxycodone/Acetaminophen 5/325 mg Tab PO STA (21:14)
[2017-07-11 21:45] VITALS: BP 157/98; PULSE 89; RESP 17; TEMP 98; O2SAT 98
== END 2017-07-11 21:45 | disposition home or self-care (01) ==
LOC: ED 20:12
DX: M54.16 Radiculopathy, lumbar region (principal); G89.29 Other chronic pain; M54.5 Low back pain; E11.9 Type 2 diabetes mellitus without complications; E03.9 Hypothyroidism, unspecified; E66.01 Morbid (severe) obesity due to excess calories
CPT/HCPCS: 96372; 99282; J1885

== ENCOUNTER 2017-09-20 15:57 | Emergency (ER) | payer BC ==
[2017-09-20 15:59] VITALS: BMI 47.7
--- NOTE | 2017-09-20 16:57 | ED PDOC ---
Arrival/HPI - General Chief Complaint: Back Pain Time Seen by Provider: 09/20/17 16:15 Historian: Patient - History of Present Illness Narrative History of Present Illness (Text): 09/20/17 18:56 Patient is a 56 M with history of obesity, NIDDM, hypothyroidism and chronic back pain who presents with complaints of left sided lower back pain which radiates down his leg to his foot. Patient states this is the same pain he experiences with his sciatica which at times is accompanied with numbness and tingling however not at this moment. Patient denies urinary/bowel incontinence, chest pain, shortness of breath, palpitations, headache, nausea, vomiting, diarrhea, fevers, chills, dizziness. Time/Duration: Prior to Arrival Symptom Onset: Gradual Activities at Onset: Rest Context: Home Past Medical History - Provider Review Nursing Documentation Reviewed: Yes - Infectious Disease Hx of Infectious Diseases: None - Tetanus Immunization Tetanus Immunization: Unknown - Cardiac Hx Cardiac Disorders: Yes - Pulmonary Hx Respiratory Disorders: Yes Hx Asthma: Yes - Neurological Hx Neurological Disorder: No - HEENT Hx HEENT Disorder: No - Renal Hx Renal Disorder: No - Endocrine/Metabolic Hx Endocrine Disorders: Yes Hx Diabetes Mellitus Type 2: Yes Hx Hypothyroidism: Yes - Hematological/Oncological Hx Blood Disorders: No - Integumentary Hx Dermatological Disorder: No - Musculoskeletal/Rheumatological Hx Musculoskeletal Disorders: Yes Hx Back Pain: Yes Other/Comment: chronic sciatic pain - Gastrointestinal Hx Gastrointestinal Disorders: No - Genitourinary/Gynecological Hx Genitourinary Disorders: No - Psychiatric Hx Psychophysiologic Disorder: No Hx Substance Use: No - Past Surgical History Past Surgical History: No Previous - Surgical History Other/Comment: left knee surgery - Anesthesia Hx Anesthesia: Yes Hx Anesthesia Reactions: No Hx Malignant Hyperthermia: No - Suicidal Assessment Feels Threatened In Home Enviroment: No Family/Social History - Physician Review Nursing Documentation Reviewed: Yes Family/Social History: Diabetes Smoking Status: Never Smoked Hx Alcohol Use: No Hx Substance Use: No Hx Substance Use Treatment: No Allergies/Home Meds Allergies/Adverse Reactions: Allergies astemizole [From Hismanal] Allergy (Verified 07/11/17 20:16) RASH doxycycline Allergy (Verified 07/11/17 20:16) RASH nadolol Allergy (Verified 07/11/17 20:16) RASH tetracycline Allergy (Verified 07/11/17 20:16) RASH Home Medications: Home Meds Medication Instructions Recorded Confirmed Levothyroxine [Synthroid] 200 mcg PO DAILY 04/20/17 07/11/17 Sitagliptin Phos/Metformin HCl 1 tab PO DAILY 06/29/17 07/11/17 [Janumet 50-500 mg Tablet] Review of Systems - Review of Systems Constitutional: Normal. absent: Fatigue Eyes: absent: Vision Changes Respiratory: Normal. absent: SOB, Cough Cardiovascular: absent: Chest Pain, Palpitations Gastrointestinal: Normal. absent: Abdominal Pain, Diarrhea, Nausea, Vomiting Genitourinary Male: Normal. absent: Dysuria Musculoskeletal: Back Pain, Other (sciatic pain in leg) Neurological: Normal. absent: Headache, Dizziness Endocrine: Normal Hemo/Lymphatic: Normal Psychiatric: absent: Anxiety Physical Exam Vital Signs Reviewed: Yes Vital Signs Temp Pulse Resp BP Pulse Ox 09/20/17 17:19 98.6 F 86 18 148/89 96 09/20/17 15:58 99 F 94 H 20 154/94 H 96 Temperature: Afebrile Blood Pressure: Hypertensive Pulse: Regular Respiratory Rate: Normal Appearance: Positive for: Well-Appearing, Non-Toxic, Uncomfortable Pain Distress: None Mental Status: Positive for: Alert and Oriented X 3 - Systems Exam Head: Present: Atraumatic, Normocephalic Extroacular Muscles: Present: EOMI Conjunctiva: Present: Normal Mouth: Present: Moist Mucous Membranes Neck: Present: Normal Range of Motion Respiratory/Chest: Present: Clear to Auscultation. No: Wheezes, Rhonchi Cardiovascular: Present: Regular Rate and Rhythm, Normal S1, S2 Abdomen: Present: Normal Bowel Sounds. No: Tenderness Upper Extremity: Present: Normal Inspection Lower Extremity: Present: Normal Inspection Neurological: Present: GCS=15, CN II-XII Intact, Speech Normal Skin: Present: Warm, Normal Color Psychiatric: Present: Alert, Oriented x 3, Normal Insight, Normal Concentration Medical Decision Making ED Course and Treatment: 09/20/17 19:11 Patient given toradol and flexeril which has relieved his symptoms in the past. Patient states his pain is improving. Will discharge patient with flexeril. - Medication Orders Current Medication Orders: Discontinued Medications Cyclobenzaprine HCl (Flexeril) 10 mg PO STAT STA Stop: 09/20/17 16:55 Last Admin: 05/26/18 17:09 Dose: 10 mg Ketorolac Tromethamine (Toradol) 30 mg IM STAT STA Stop: 09/20/17 16:55 Last Admin: 09/20/17 17:09 Dose: 30 mg MAR Pain Assessment Document 09/20/17 17:09 MUSA (Rec: 09/20/17 17:10 MUSA [id number]) Pain Reassessment Is this a pain reassessment? Yes Presence of Pain Presence of Pain Yes Pain Scale Used Pain Scale Used Numeric Location Upper or Lower Lower Pain Location Body Site Back Description Description Sharp Intensity of Pain at present 7 IM Administration Charges Document 09/20/17 17:09 MUSA (Rec: 09/20/17 17:10 MUSA [id number]) Injection Site MAR Injection Site Left Deltoid Charges for Administration # of IM Administrations 1 Oxycodone/Acetaminophen (Percocet 5/325 Mg Tab) 2 tab PO STAT STA Stop: 09/20/17 18:28 Disposition/Present on Arrival - Present on Arrival Any Indicators Present on Arrival: No History of DVT/PE: No History of Uncontrolled Diabetes: No Urinary Catheter: No History of Decub. Ulcer: No History Surgical Site Infection Following: None - Disposition Have Diagnosis and Disposition been Completed?: Yes Diagnosis: Lower back pain, Sciatic leg pain Disposition: HOME/ ROUTINE Disposition Time: 19:12 Patient Plan: Discharge Condition: FAIR Discharge Instructions (ExitCare): Sciatica (DC), Low Back Pain (DC) Additional Instructions: Mr. Plata thank you for letting us take care of you today. You were treated for your lower back pain. The emergency medical care you received today was directed at your acute symptoms. If you were prescribed any medication, please fill it and take as directed. It may take several days for your symptoms to resolve. Return to the Emergency Department if your symptoms worsen, do not improve, or if you have any other problems. Please contact your doctor or call one of the physicians/clinics you have been referred to that are listed on the Patient Visit Information form that is included in your discharge packet. Bring any paperwork you were given at discharge with you along with any medications you are taking to your follow up visit. Our treatment cannot replace ongoing medical care by a primary care provider (PCP) outside of the emergency department. Thank you for allowing the [facility] [employer] team to be part of your care today. If you had an X-Ray or CT scan: A Radiologist will review the ED reading if any change in treatment is needed we will contact you. If you had a blood, urine, or wound culture: It will take several days for the results, if any change in treatment is needed we will contact you. If you had an STI test: It will take 48 hours for the results. Please call after 1 week if you have not heard back. Prescriptions: Cyclobenzaprine [Cyclobenzaprine HCl] 10 mg PO DAILY PRN #15 tab PRN Reason: Pain, Severe (8-10) Forms: [employer] (Hebrew)
[2017-09-20] MEDS ORDERED: Oxycodone/Acetaminophen 5/325 mg Tab PO STA (18:27)
[2017-09-20 19:23] VITALS: BP 142/72; PULSE 82; RESP 17; TEMP 98; O2SAT 100
== END 2017-09-20 19:23 | disposition home or self-care (01) ==
LOC: ED 15:57
DX: M54.5 Low back pain (principal); M79.606 Pain in leg, unspecified; E11.9 Type 2 diabetes mellitus without complications; E03.9 Hypothyroidism, unspecified
CPT/HCPCS: 82948; 96372; 99283; J1885

== ENCOUNTER 2017-09-30 20:16 | Emergency (ER) | payer BC ==
[2017-09-30 20:16] VITALS: BMI 47.7
[2017-09-30 20:25] VITALS: TEMP 98.5
[2017-09-30] MEDS ORDERED: Lidocaine 5% Patch TD STA (20:41)
--- NOTE | 2017-09-30 21:00 | ED PDOC ---
Arrival/HPI - General Chief Complaint: Lower Extremity Problem/Injury Time Seen by Provider: 09/30/17 20:34 Historian: Patient - History of Present Illness Narrative History of Present Illness (Text): 09/30/17 20:57 56 year old male, whose history includes sciatica, presents to the Emergency department complaining of pain similar to sciatic pain in left leg. Patient has been evaluated in the Emergency department numerous times for similar symptoms. Patient is due for outpatient MRI and possible surgery. Patient denies any fever , chills, chest pain, shortness of breath, nausea, vomiting, diarrhea, urinary symptoms, neck pain, headache, dizziness, or any other complaints. Time/Duration: > month Symptom Onset: Gradual Symptom Course: Unchanged Context: Home Past Medical History - Provider Review Nursing Documentation Reviewed: Yes - Infectious Disease Hx of Infectious Diseases: None - Tetanus Immunization Tetanus Immunization: Unknown - Cardiac Hx Cardiac Disorders: Yes - Pulmonary Hx Respiratory Disorders: Yes Hx Asthma: Yes - Neurological Hx Neurological Disorder: No - HEENT Hx HEENT Disorder: No - Renal Hx Renal Disorder: No - Endocrine/Metabolic Hx Endocrine Disorders: Yes Hx Diabetes Mellitus Type 2: Yes Hx Hypothyroidism: Yes - Hematological/Oncological Hx Blood Disorders: No - Integumentary Hx Dermatological Disorder: No - Musculoskeletal/Rheumatological Hx Musculoskeletal Disorders: Yes Hx Back Pain: Yes Other/Comment: chronic sciatic pain - Gastrointestinal Hx Gastrointestinal Disorders: No - Genitourinary/Gynecological Hx Genitourinary Disorders: No - Psychiatric Hx Psychophysiologic Disorder: No Hx Substance Use: No - Past Surgical History Past Surgical History: No Previous - Surgical History Other/Comment: left knee surgery - Anesthesia Hx Anesthesia: Yes Hx Anesthesia Reactions: No Hx Malignant Hyperthermia: No - Suicidal Assessment Feels Threatened In Home Enviroment: No Family/Social History - Physician Review Nursing Documentation Reviewed: Yes Family/Social History: Unknown Family HX Smoking Status: Never Smoked Hx Alcohol Use: No Hx Substance Use: No Hx Substance Use Treatment: No Allergies/Home Meds Allergies/Adverse Reactions: Allergies astemizole [From Hismanal] Allergy (Verified 07/11/17 20:16) RASH doxycycline Allergy (Verified 07/11/17 20:16) RASH nadolol Allergy (Verified 07/11/17 20:16) RASH tetracycline Allergy (Verified 07/11/17 20:16) RASH Home Medications: Home Meds Medication Instructions Recorded Confirmed Levothyroxine [Synthroid] 200 mcg PO DAILY 04/20/17 07/11/17 Sitagliptin Phos/Metformin HCl 1 tab PO DAILY 06/29/17 07/11/17 [Janumet 50-500 mg Tablet] Review of Systems - Review of Systems Constitutional: absent: Fevers, Night Sweats Respiratory: absent: SOB Cardiovascular: absent: Chest Pain Gastrointestinal: absent: Diarrhea, Nausea, Vomiting Genitourinary Male: absent: Dysuria Musculoskeletal: Back Pain, Other (left leg pain). absent: Neck Pain Neurological: absent: Headache, Dizziness Physical Exam Vital Signs Reviewed: Yes Vital Signs Temp Pulse Resp BP Pulse Ox 09/30/17 21:20 98.5 F 90 18 162/92 H 99 09/30/17 20:21 98.5 F 100 H 20 174/100 H 96 Temperature: Afebrile Blood Pressure: Hypertensive Pulse: Tachycardic Respiratory Rate: Normal Appearance: Positive for: Well-Appearing, Non-Toxic, Comfortable, Other (obese) Pain Distress: None Mental Status: Positive for: Alert and Oriented X 3 - Systems Exam Head: Present: Atraumatic, Normocephalic Pupils: Present: PERRL Extroacular Muscles: Present: EOMI Conjunctiva: Present: Normal Mouth: Present: Moist Mucous Membranes Neck: Present: Normal Range of Motion Respiratory/Chest: Present: Clear to Auscultation, Good Air Exchange. No: Respiratory Distress, Accessory Muscle Use Cardiovascular: Present: Regular Rate and Rhythm, Normal S1, S2. No: Murmurs Abdomen: No: Tenderness, Distention, Peritoneal Signs Back: Present: Pain with Leg Raise (positive left straight leg raise) Upper Extremity: Present: Normal Inspection. No: Cyanosis, Edema Lower Extremity: Present: Normal Inspection. No: Edema Neurological: Present: GCS=15, CN II-XII Intact, Speech Normal Skin: Present: Warm, Dry, Normal Color. No: Rashes Psychiatric: Present: Alert, Oriented x 3, Normal Insight, Normal Concentration Medical Decision Making ED Course and Treatment: 09/30/17 21:02 Impression: 56 year old male presents to the Emergency department complaining of left leg pain similar to previous sciatic pain. Plan: -- Lidocaine 5% and Toradol -- Reassess and disposition Prior Visits: Notes and results from previous visits were reviewed. Patient was last seen in the emergency department on 09/20/17, was diagnosed with Lower back pain, Sciatic leg pain, and was discharged home. Progress Notes: 10/03/17 23:32 pain improved. suspect sciatica. steady gait. no saddle anesthesia. no urinary complaints - Medication Orders Current Medication Orders: Discontinued Medications Ketorolac Tromethamine (Toradol) 30 mg IM STAT STA Stop: 09/30/17 20:42 Last Admin: 09/30/17 21:13 Dose: 30 mg MAR Pain Assessment Document 09/30/17 21:13 HI (Rec: 09/30/17 21:15 HI [id number]) Pain Reassessment Is this a pain reassessment? No IM Administration Charges Document 09/30/17 21:13 HI (Rec: 09/30/17 21:15 HI [id number]) Injection Site MAR Injection Site Left Gluteus Lele Charges for Administration # of IM Administrations 1 Lidocaine (Lidoderm) 1 ea TD STAT STA Stop: 09/30/17 20:42 Last Admin: 09/30/17 21:12 Dose: 1 ea MAR Transdermal Patch Site Document 09/30/17 21:12 HI (Rec: 09/30/17 21:12 HI [id number]) Transdermal Patch Site Transdermal Patch Site Left Lower Back - Scribe Statement The provider has reviewed the documentation as recorded by the Leandro Gamboa Provider Scribe Attestation: All medical record entries made by the Scribe were at my direction and personally dictated by me. I have reviewed the chart and agree that the record accurately reflects my personal performance of the history, physical exam, medical decision making, and the department course for this patient. I have also personally directed, reviewed, and agree with the discharge instructions and disposition. Disposition/Present on Arrival - Present on Arrival Any Indicators Present on Arrival: No History of DVT/PE: No History of Uncontrolled Diabetes: No Urinary Catheter: No History of Decub. Ulcer: No History Surgical Site Infection Following: None - Disposition Have Diagnosis and Disposition been Completed?: Yes Diagnosis: Sciatica Disposition: HOME/ ROUTINE Disposition Time: 11:00 Condition: STABLE Discharge Instructions (ExitCare): Sciatica Additional Instructions: follow up with your doctor. return to er with worsening symptoms or concerns. Prescriptions: Lidocaine 5% [Lidoderm] 1 ea TD DAILY PRN #4 patch PRN Reason: Pain, Mild (1-3) Referrals: Michelle Salgado MD [Primary Care Provider] - Follow up with primary Forms: [employer] (Kyrgyz)
[2017-09-30 21:59] VITALS: BP 162/92; PULSE 90; RESP 18; O2SAT 99
== END 2017-09-30 21:20 | disposition home or self-care (01) ==
LOC: ED 20:16
DX: M54.30 Sciatica, unspecified side (principal)
CPT/HCPCS: 96372; 99283; J1885

== ENCOUNTER 2017-12-09 20:41 | Emergency (ER) | payer BC ==
[2017-12-09 20:41] VITALS: BMI 47.7
[2017-12-09 20:53] VITALS: BP 158/90; RESP 20
[2017-12-09] MEDS ORDERED: Ipratropium 0.02% Inhal Soln (0.5 mg/2.5 ml) UD IH STA (21:06)
[2017-12-09] MEDS ORDERED: Albuterol 0.083% Inhal Sol (2.5 mg/3 mL) UD INH STA ×3 (21:06→22:14)
--- NOTE | 2017-12-09 21:19 | ED PDOC ---
Arrival/HPI - General Chief Complaint: Respiratory Distress Time Seen by Provider: 12/09/17 20:46 Historian: Patient EM Caveat: Acuity of Condition - History of Present Illness Narrative History of Present Illness (Text): 12/09/17 21:02 A 57 y/o M w/ h/o asthma, presents to the emergency department complaining of chest tightness and wheezing for 2 days. Patient reports resting at home, when he suddenly began having dry cough and wheezing. He reports administering one round of nebulizer treatment and using his rescue inhaler today with no relief in symptoms. He attributed his triggers to being exposed to pollen. Patient denies any fever, chills, no recent travel,chest pain, syncopal episodes, recent hospitalizations, hives, headaches, facial swelling or nausea or emesis. He admits to his last exacerbation was several months ago and denies a history of ever being intubated for his symptoms. No PMD Time/Duration: Prior to Arrival, < week (2 days) Symptom Onset: Gradual Symptom Course: Worsening Quality: Tightness Severity Level: Moderate Activities at Onset: Rest Context: Home Past Medical History - Provider Review Nursing Documentation Reviewed: Yes - Travel History Have you recently traveled outside [place] w/in the past 3 mons?: No - Infectious Disease Hx of Infectious Diseases: None - Tetanus Immunization Tetanus Immunization: Unknown - Cardiac Hx Cardiac Disorders: Yes - Pulmonary Hx Respiratory Disorders: Yes Hx Asthma: Yes - Neurological Hx Neurological Disorder: No - HEENT Hx HEENT Disorder: No - Renal Hx Renal Disorder: No - Endocrine/Metabolic Hx Endocrine Disorders: Yes Hx Diabetes Mellitus Type 2: Yes Hx Hypothyroidism: Yes - Hematological/Oncological Hx Blood Disorders: No - Integumentary Hx Dermatological Disorder: No - Musculoskeletal/Rheumatological Hx Musculoskeletal Disorders: Yes Hx Back Pain: Yes Other/Comment: chronic sciatic pain - Gastrointestinal Hx Gastrointestinal Disorders: No - Genitourinary/Gynecological Hx Genitourinary Disorders: No - Psychiatric Hx Psychophysiologic Disorder: No Hx Substance Use: No - Past Surgical History Past Surgical History: No Previous - Surgical History Other/Comment: left knee surgery - Anesthesia Hx Anesthesia: Yes Hx Anesthesia Reactions: No Hx Malignant Hyperthermia: No - Suicidal Assessment Feels Threatened In Home Enviroment: No Family/Social History - Physician Review Nursing Documentation Reviewed: Yes Family/Social History: No Known Family HX Smoking Status: Never Smoked Hx Alcohol Use: No Hx Substance Use: No Hx Substance Use Treatment: No Allergies/Home Meds Allergies/Adverse Reactions: Allergies astemizole [From Hismanal] Allergy (Verified 07/11/17 20:16) RASH doxycycline Allergy (Verified 07/11/17 20:16) RASH nadolol Allergy (Verified 07/11/17 20:16) RASH tetracycline Allergy (Verified 07/11/17 20:16) RASH Home Medications: Home Meds Medication Instructions Recorded Confirmed Levothyroxine [Synthroid] 200 mcg PO DAILY 04/20/17 12/09/17 Sitagliptin Phos/Metformin HCl 1 tab PO DAILY 06/29/17 12/09/17 [Janumet 50-500 mg Tablet] Aspirin [Adult Low Dose Aspirin EC] 81 mg PO DAILY 12/09/17 12/09/17 Atorvastatin [Lipitor] 10 mg PO HS 12/09/17 12/09/17 GlipiZIDE [Glucotrol] 5 mg PO DAILY 12/09/17 12/09/17 Levothyroxine [Synthroid] 200 mcg PO DAILY 12/09/17 12/09/17 Loratadine [Claritin] 10 mg PO DAILY 12/09/17 12/09/17 Losartan/Hydrochlorothiazide 1 tab PO DAILY 12/09/17 12/09/17 [Losartan-Hctz 100-12.5 mg Tab] Review of Systems - Physician Review All systems were reviewed & negative as marked: Yes - Review of Systems Constitutional: absent: Fevers, Night Sweats Eyes: absent: Vision Changes, Photophobia Respiratory: SOB, Cough, Wheezing Cardiovascular: Other (chest tightness). absent: Chest Pain, Palpitations, Edema Gastrointestinal: absent: Abdominal Pain, Constipation, Diarrhea, Nausea, Vomiting Musculoskeletal: absent: Back Pain, Neck Pain, Myalgias Skin: absent: Rash, Skin Lesions Neurological: absent: Headache, Dizziness Psychiatric: absent: Depression Physical Exam Vital Signs Reviewed: Yes Vital Signs Pulse Resp BP Pulse Ox 12/09/17 20:51 94 H 20 158/90 H 99 Temperature: Afebrile Blood Pressure: Normal Pulse: Regular Respiratory Rate: Normal Appearance: Positive for: Well-Appearing Pain Distress: None Mental Status: Positive for: Alert and Oriented X 3 - Systems Exam Head: Present: Atraumatic, Normocephalic Pupils: Present: PERRL Extroacular Muscles: Present: EOMI Conjunctiva: Present: Normal Mouth: Present: Moist Mucous Membranes Neck: Present: Normal Range of Motion Respiratory/Chest: Present: Decreased Breath Sounds (bilaterally). No: Respiratory Distress, Accessory Muscle Use, Wheezes, Rales Cardiovascular: Present: Regular Rate and Rhythm, Normal S1, S2. No: Murmurs Abdomen: No: Tenderness, Distention, Peritoneal Signs Back: Present: Normal Inspection Upper Extremity: Present: Normal Inspection. No: Cyanosis, Edema Lower Extremity: Present: Normal Inspection. No: Edema Neurological: Present: GCS=15, CN II-XII Intact, Speech Normal Skin: Present: Warm, Dry, Normal Color. No: Rashes Psychiatric: Present: Alert, Oriented x 3, Normal Insight, Normal Concentration Medical Decision Making ED Course and Treatment: 12/09/17 21:06 Impression: 57 year old male with chest tightness and wheezing most indicative of asthma exacerbation. Differential Diagnosis included but are not limited to: Asthma exacerbation Plan: -- Albuterol -- Atrovent -- Reassess and disposition Progress Notes: 12/09/17 22:27 Patient reports complete relief after nebulizer treatment. He states he has adequate inhaler medications at home and does not need any more refills. He also states he has an appointment with a supervisor webbing in 2 weeks. Return protocol provided. Patient is stable for discharge. - Medication Orders Current Medication Orders: Discontinued Medications Albuterol Sulfate (Albuterol 0.083% Inhal Le (2.5 Mg/3 Ml) Ud) 2.5 mg INH STAT STA Stop: 12/09/17 21:07 Last Admin: 12/09/17 21:16 Dose: 2.5 mg Albuterol Sulfate (Albuterol 0.083% Inhal Le (2.5 Mg/3 Ml) Ud) 2.5 mg INH STAT STA Stop: 12/09/17 21:44 Last Admin: 12/09/17 21:51 Dose: 2.5 mg Albuterol Sulfate (Albuterol 0.083% Inhal Le (2.5 Mg/3 Ml) Ud) 2.5 mg INH STAT STA Stop: 12/09/17 22:15 Ipratropium [place] (Atrovent) 0.5 mg IH STAT STA Stop: 12/09/17 21:07 Last Admin: 12/09/17 21:24 Dose: 0.5 mg Prednisone (Prednisone Tab) 40 mg PO STAT STA Stop: 12/09/17 21:45 Last Admin: 12/09/17 21:51 Dose: 40 mg - Scribe Statement The provider has reviewed the documentation as recorded by the Leandro Tomlinson Provider Scribe Attestation: All medical record entries made by the Scribgrady were at my direction and personally dictated by me. I have reviewed the chart and agree that the record accurately reflects my personal performance of the history, physical exam, medical decision making, and the department course for this patient. I have also personally directed, reviewed, and agree with the discharge instructions and disposition. Disposition/Present on Arrival - Present on Arrival Any Indicators Present on Arrival: No History of DVT/PE: No History of Uncontrolled Diabetes: No Urinary Catheter: No History of Decub. Ulcer: No History Surgical Site Infection Following: None - Disposition Have Diagnosis and Disposition been Completed?: Yes Diagnosis: Asthma attack Disposition: HOME/ ROUTINE Disposition Time: 22:41 Patient Plan: Discharge Condition: STABLE Discharge Instructions (ExitCare): Asthma in Adults, Inhalers Forms: [facility] ([place])
[2017-12-09 23:31] VITALS: PULSE 99; O2SAT 99
== END 2017-12-09 23:31 | disposition home or self-care (01) ==
LOC: ED 20:41
DX: J45.909 Unspecified asthma, uncomplicated (principal)